=== PATIENT | female | born 1950 | race Two or more races ===

== ENCOUNTER 2021-10-09 09:55 | Outpatient (CLI) | payer OTHER | END 2021-10-09 10:08 | disposition home or self-care (01) | LOC: MAMO-SONO 09:55 | PROVIDERS: ATTEND Obstetrics & Gynecology | DX: N60.11 Diffuse cystic mastopathy of right breast (principal) ==

== ENCOUNTER 2021-12-31 11:00 | Outpatient (CLI) | payer OTHER | END 2021-12-31 11:03 | disposition home or self-care (01) | LOC: NUCLEAR 11:00 | PROVIDERS: ATTEND General Practice | DX: M85.89 Other specified disorders of bone density and structure, multiple sites (principal) ==

== ENCOUNTER 2021-12-31 13:42 | Outpatient (CLI) | payer OTHER | END 2021-12-31 14:29 | disposition home or self-care (01) | LOC: LAB 13:42 | DX: R31.21 Asymptomatic microscopic hematuria (principal) ==

== ENCOUNTER 2022-01-04 09:23 | Outpatient (CLI) | payer OTHER | END 2022-01-04 09:41 | disposition home or self-care (01) | LOC: TOM 09:23 | PROVIDERS: ATTEND Urology | DX: R31.21 Asymptomatic microscopic hematuria (principal) ==

== ENCOUNTER 2022-06-05 09:28 | Outpatient (CLI) | payer OTHER | END 2022-06-05 09:52 | disposition home or self-care (01) | LOC: RAD 09:28 | PROVIDERS: ATTEND Internal Medicine Rheumatology | DX: M15.8 Other polyosteoarthritis (principal); M25.562 Pain in left knee; M25.561 Pain in right knee ==

== ENCOUNTER 2022-12-19 14:42 | Outpatient (CLI) | payer OTHER | END 2022-12-19 14:55 | disposition home or self-care (01) | LOC: RAD 14:42 | PROVIDERS: ATTEND Internal Medicine Rheumatology | DX: M17.0 Bilateral primary osteoarthritis of knee (principal) ==

== ENCOUNTER 2023-06-16 13:55 | Outpatient (CLI) | payer OTHER | END 2023-06-16 13:58 | disposition home or self-care (01) | LOC: MAMO-SONO 13:55 | PROVIDERS: ATTEND Obstetrics & Gynecology | DX: Z12.31 Encounter for screening mammogram for malignant neoplasm of breast (principal); N60.11 Diffuse cystic mastopathy of right breast ==

== ENCOUNTER 2023-06-18 09:57 | Outpatient (CLI) | payer OTHER | END 2023-06-18 10:03 | disposition home or self-care (01) | LOC: RAD 09:57 | DX: R91.8 Other nonspecific abnormal finding of lung field (principal); Z13.83 Encounter for screening for respiratory disorder NEC; R93.89 Abnormal findings on diagnostic imaging of other specified body structures ==

== ENCOUNTER 2024-05-03 09:52 | Outpatient (CLI) | payer OTHER | END 2024-05-03 09:58 | disposition home or self-care (01) | LOC: RAD 09:52 | DX: I10 Essential (primary) hypertension (principal) ==

== ENCOUNTER → 2025-03-04 | Outpatient (CLI) | payer OTHER | END | disposition home or self-care (01) | LOC: RAD 12:48 | PROVIDERS: ATTEND Plastic Surgery Surgery of the Hand | DX: M19.049 Primary osteoarthritis, unspecified hand (principal) ==

== ENCOUNTER → 2025-03-25 09:56 | Outpatient (CLI) | payer OTHER | END | disposition home or self-care (01) | LOC: NUCLEAR 09:56 | PROVIDERS: ATTEND Obstetrics & Gynecology | DX: M81.0 Age-related osteoporosis without current pathological fracture (principal) ==